=== PATIENT | female | born 1935 | race Caucasian/White ===

== ENCOUNTER 2017-05-28 17:25 | Emergency (ER) | payer OTHER ==
[~2017-05-28] VITALS: Ht 175.3 cm; Wt 53.5 kg
[~2017-05-28 17:25] MED LIST: ACET325 PO; ALBU3IS INH; ALBU90OI6 INH; ALEN70 PO; ALLERGY PILL; AMLO5 PO; ATOR20 PO; AZIT250 PO; Antivert25 MG PO; BUDE.25 NEB; CEPH500 PO; CHOL10002; CIPR500 PO; DULERA 200 MCG/13 GM INH; Doxycycline Hy100 MG PO; Esgic Tablet1 EACH PO; FAMO20 PO; FIBER PO; FLUO10 PO; GUAI600T33 PO; HYDACE10B PO; HYDACE5 PO; HYDACE5325 PO; IBUP800 PO; METPRE4DP PO; METR500 PO; MORP15ER PO; MULVITMIND PO; OXYACE5T PO; OXYC15ER PO; PRED20 PO; PROC10 PO; Prednisone20 MG PO; SERT25 PO; SULTRIDS PO; ZOLP5 PO; [UNRECOGNIZED DRUG - REMARK]
[2017-05-28 18:19] LABS: Source, Urine Voided
[2017-05-28 18:28] LABS: Bilirubin, Urine Neg (Neg); Blood, Urine 2+ (Neg); Glucose Qualitative, Urine Neg (Neg); Ketones, Urine 1+ (Neg); Leukocyte Esterase, Urine 3+ (Neg); Nitrite, Urine Neg (Neg); Protein, Urine 2+ (Neg); Urobilinogen, Urine 1+ (Normal)
[2017-05-28 18:37] LABS: Appearance, Urine Clear (Clear); Color, Urine Yellow (P-Yellow)
[2017-05-28 18:38] LABS: Bacteria Mod /hpf; Red Blood Cells, Urine 0-2 /hpf (0-2); Squamous Epithelial Cells Mod /hpf (Few)
[2017-05-28 18:39] LABS: Calcium Oxalate Crystals Many /hpf
[2017-05-28 19:14] LABS: BASOPHILS ABSOLUTE AUTO 0.05 K/mm3 (0.00-0.23); BASOPHILS PERCENT AUTO 0 % (0-2); EOSINOPHILS ABSOLUTE AUTO 0.06 K/mm3 (0.00-0.68); EOSINOPHILS PERCENT AUTO 1 % (0-6); Hematocrit 40.7 % (33.0-51.0); Hemoglobin 13.1 g/dL (11.5-16.0); IMMATURE GRAN ABSOLUTE AUTO 0.04 K/mm3 (0.00-0.10); IMMATURE GRAN PERCENT AUTO 0 % (0-1); LYMPHOCYTES ABSOLUTE AUTO 1.53 K/mm3 (0.84-5.20); LYMPHOCYTES PERCENT AUTO 13 % (21-46); MONOCYTES ABSOLUTE AUTO 1.32 K/mm3 (0.16-1.47); MONOCYTES PERCENT AUTO 11 % (4-13); Mean Corpuscular HGB 29.1 pg (26.0-34.0); Mean Corpuscular HGB Conc 32.2 g/dL (31.5-36.5); Mean Corpuscular Volume 90 fL (80-100); Mean Platelet Volume 9.7 fL (9.1-12.4); NEUTROPHILS ABSOLUTE AUTO 8.94 K/mm3 (1.96-9.15); NEUTROPHILS PERCENT AUTO 75 % (41-73); Platelet Count 319 K/mm3 (150-400); RDW Coefficient Variation 12.7 % (11.7-14.2); RDW Standard Deviation 42.5 fL (35.1-46.3); White Blood Cell Count 11.94 K/mm3 (4.00-11.30)
[2017-05-28 20:12] LABS: Alanine Aminotransfer (ALT/SGP 22 U/L (12-78); Albumin, Blood 3.8 g/dL (3.4-5.0); Alk Phos 81 U/L (50-136); Anion Gap 8 mmol/L (6-16); Aspartate Aminotrans (AST/SGOT 19 U/L (12-37); Bilirubin, Total 0.5 mg/dL (0.1-1.0); Blood Urea Nitrogen 17 mg/dL (8-24); Bun/Creatinine Ratio 24.4 (12.0-20.0); CO2, Blood 28 mmol/L (21-32); Calcium, Blood 9.2 mg/dL (8.5-10.1); Chloride, Blood 104 mmol/L (98-108); Globulin, Blood 3.7 g/dL (2.2-4.0); Glomerular Filtration Rate >60 (60-); Glucose, Blood 121 mg/dL (70-99); Potassium, Blood 3.7 mmol/L (3.5-5.5); Sodium, Blood 140 mmol/L (136-145); Total Protein, Blood 7.5 g/dL (6.4-8.2)
[2017-05-28] MEDS ORDERED: LIDO700A20 TOP (21:17)
[2017-05-28] MEDS ORDERED: Cyclobenzaprine5 MG PO (21:17)
[2017-05-28] MEDS ORDERED: Roxicodone5 MG PO (21:17)
[2018-02-09] MEDS ORDERED: OMEPRAZOLE MAGN20 MG PO (12:04)
[2018-02-09] MEDS ORDERED: Bactrim Ds Tab1 EACH PO (14:25)
== END 2017-05-28 21:51 | disposition home or self-care (01) ==
LOC: ER 17:25
PROVIDERS: Nurse Practitioner Family
DX: N39.0 Urinary tract infection, site not specified (principal); M62.830 Muscle spasm of back; M54.5 Low back pain; Z88.0 Allergy status to penicillin; Z88.1 Allergy status to other antibiotic agents; Z79.899 Other long term (current) drug therapy; Z79.891 Long term (current) use of opiate analgesic; J44.9 Chronic obstructive pulmonary disease, unspecified; Z77.22 Contact with and (suspected) exposure to environmental tobacco smoke (acute) (chronic); Z85.038 Personal history of other malignant neoplasm of large intestine
CPT/HCPCS: 36415; 74176; 80053; 81001; 85025; 87086; 96374; 96375; 99284; J0696; J1170; J1885; J2405

== ENCOUNTER 2018-12-26 12:20 | Emergency (ER) | payer OTHER ==
[~2018-12-26] VITALS: Ht 165.1 cm; Wt 45.4 kg
[~2018-12-26 12:20] MED LIST changes: +Bactrim Ds Tab1 EACH PO; +Cyclobenzaprine5 MG PO; +LIDO700A20 TOP; +OMEPRAZOLE MAGN20 MG PO; +Roxicodone5 MG PO
== END 2018-12-26 15:24 | disposition home or self-care (01) ==
LOC: ER 12:20
DX: M80.08XA Age-related osteoporosis with current pathological fracture, vertebra(e), initial encounter for fracture (principal); Z87.442 Personal history of urinary calculi; Z85.038 Personal history of other malignant neoplasm of large intestine; Z77.22 Contact with and (suspected) exposure to environmental tobacco smoke (acute) (chronic); Z88.0 Allergy status to penicillin; Z88.1 Allergy status to other antibiotic agents; Z79.899 Other long term (current) drug therapy; Z79.891 Long term (current) use of opiate analgesic
CPT/HCPCS: 72100; 96372; 99283-25; J1170

== ENCOUNTER → 2019-01-22 | Outpatient (CLI) | payer OTHER ==
[2019-01-22 15:31] LABS: U Amphetamine Screen Not Detected; U Barbituate Screen Not Detected; U Benzodiazapine Screen Not Detected; U Buprenorphine Screen Not Detected; U Cannabinoids Screen Not Detected; U Cocaine Screen Not Detected; U Methadone Screen Not Detected; U Methamphetamine Screen Not Detected; U Opiates Screen DETECTED; U Oxycodone Screen DETECTED; U Phencyclidine Screen Not Detected; U Propoxyphene Screen Not Detected
== END | disposition home or self-care (01) ==
LOC: LAB SHORT 13:33 → LAB 13:33
PROVIDERS: Internal Medicine
DX: Z51.81 Encounter for therapeutic drug level monitoring (principal); Z79.891 Long term (current) use of opiate analgesic
CPT/HCPCS: G0480

== ENCOUNTER 2020-08-03 12:07 | Day surgery (SDC) | payer OTHER ==
[~2020-08-03] VITALS: Ht 162.6 cm; Wt 94.6 kg
[~2020-08-03 12:07] MED LIST changes: +Ultram50 MG PO
[2020-08-03] MEDS ORDERED: CYMBALTA30 M2 PO (12:27)
[2020-08-03] MEDS ORDERED: LORA10ER PO (12:27)
== END 2020-08-03 14:05 | disposition home or self-care (01) ==
LOC: ORSCSDS 12:07
PROVIDERS: Student in an Organized Health Care Education/Training Program
PROC: 0DB68ZX Excision of Stomach, Via Natural or Artificial Opening Endoscopic, Diagnostic (ICD-10-PCS; principal; 2020-08-03 13:15)
PROC: 0DB98ZX Excision of Duodenum, Via Natural or Artificial Opening Endoscopic, Diagnostic (ICD-10-PCS; principal; 2020-08-03 13:15)
DX: R11.0 Nausea (principal); B96.81 Helicobacter pylori [H. pylori] as the cause of diseases classified elsewhere; K29.70 Gastritis, unspecified, without bleeding; K31.7 Polyp of stomach and duodenum; Z99.81 Dependence on supplemental oxygen; F32.9 Major depressive disorder, single episode, unspecified; K21.9 Gastro-esophageal reflux disease without esophagitis; J44.9 Chronic obstructive pulmonary disease, unspecified; Z79.899 Other long term (current) drug therapy
CPT/HCPCS: 88305; 88341; 88342; J2704; J7120

== ENCOUNTER 2020-08-18 15:21 | Emergency (ER) | payer OTHER ==
[~2020-08-18] VITALS: Ht 167.6 cm; Wt 42.2 kg
[~2020-08-18 15:21] MED LIST changes: +CYMBALTA30 M2 PO; +LORA10ER PO
[2020-08-18 15:58] LABS: BASOPHILS ABSOLUTE AUTO 0.05 K/mm3 (0.00-0.23); BASOPHILS PERCENT AUTO 0 % (0-2); EOSINOPHILS ABSOLUTE AUTO 0.01 K/mm3 (0.00-0.68); EOSINOPHILS PERCENT AUTO 0 % (0-6); Hematocrit 42.3 % (33.0-51.0); Hemoglobin 13.8 g/dL (11.5-16.0); IMMATURE GRAN ABSOLUTE AUTO 0.05 K/mm3 (0.00-0.10); IMMATURE GRAN PERCENT AUTO 0 % (0-1); LYMPHOCYTES ABSOLUTE AUTO 2.25 K/mm3 (0.84-5.20); LYMPHOCYTES PERCENT AUTO 19 % (21-46); MONOCYTES ABSOLUTE AUTO 1.09 K/mm3 (0.16-1.47); MONOCYTES PERCENT AUTO 9 % (4-13); Mean Corpuscular HGB 29.8 pg (26.0-34.0); Mean Corpuscular HGB Conc 32.6 g/dL (31.5-36.5); Mean Corpuscular Volume 91 fL (80-100); Mean Platelet Volume 10.1 fL (9.1-12.4); NEUTROPHILS ABSOLUTE AUTO 8.53 K/mm3 (1.96-9.15); NEUTROPHILS PERCENT AUTO 71 % (41-73); Platelet Count 337 K/mm3 (150-400); RDW Coefficient Variation 11.7 % (11.7-14.2); RDW Standard Deviation 39.6 fL (35.1-46.3); Red Blood Cell Count 4.63 M/mm3 (3.80-5.20); White Blood Cell Count 11.98 K/mm3 (4.00-11.30)
[2020-08-18 16:19] LABS: Alanine Aminotransfer (ALT/SGP 17 U/L (12-78); Albumin/Globulin Ratio 1.2 (0.8-1.8); Alk Phos 101 U/L (50-136); Anion Gap 5 mmol/L (6-16); Aspartate Aminotrans (AST/SGOT 18 U/L (12-37); Bilirubin, Total 0.5 mg/dL (0.1-1.0); Blood Urea Nitrogen 20 mg/dL (8-24); Bun/Creatinine Ratio 22.5 (12.0-20.0); CO2, Blood 25 mmol/L (21-32); Calcium, Blood 9.2 mg/dL (8.5-10.1); Chloride, Blood 104 mmol/L (98-108); Creatinine, Blood 0.89 mg/dL (0.40-1.00); Globulin, Blood 3.4 g/dL (2.2-4.0); Glomerular Filtration Rate >60 (60-); Glucose, Blood 151 mg/dL (70-99); Potassium, Blood 3.7 mmol/L (3.5-5.5); Sodium, Blood 134 mmol/L (136-145); Total Protein, Blood 7.4 g/dL (6.4-8.2)
[2020-08-18] MEDS ORDERED: DOXYCYCLINE HY100 M1 PO (18:42)
[2020-08-18] MEDS ORDERED: METR500 PO (18:42)
[2020-08-18] MEDS ORDERED: BISM300CH PO (18:43)
== END 2020-08-18 21:56 | disposition home or self-care (01) ==
LOC: ER 15:21
PROVIDERS: Physician Assistant
DX: K92.1 Melena (principal); E78.00 Pure hypercholesterolemia, unspecified; J44.9 Chronic obstructive pulmonary disease, unspecified; Z88.0 Allergy status to penicillin; Z88.1 Allergy status to other antibiotic agents; Z79.899 Other long term (current) drug therapy; Z87.442 Personal history of urinary calculi
CPT/HCPCS: 36415; 74177; 80053; 85025; 86850; 86900; 86901; 93005; 93010; 96374-59; 99284-25; J2405; Q9967

== ENCOUNTER 2021-04-20 18:55 | Emergency (ER) | payer OTHER ==
[~2021-04-20] VITALS: Ht 167.6 cm; Wt 38.6 kg
[~2021-04-20 18:55] MED LIST changes: +ALMACONE SUSPE355 ML PO; +BISM300CH PO; +DOXYCYCLINE HY100 M1 PO; +ONDA4ODT MM
[2021-04-20 19:33] LABS: BASOPHILS ABSOLUTE AUTO 0.01 K/mm3 (0.00-0.23); BASOPHILS PERCENT AUTO 0 % (0-2); EOSINOPHILS PERCENT AUTO 0 % (0-6); Hematocrit 42.3 % (33.0-51.0); Hemoglobin 13.9 g/dL (11.5-16.0); IMMATURE GRAN ABSOLUTE AUTO 0.02 K/mm3 (0.00-0.10); IMMATURE GRAN PERCENT AUTO 0 % (0-1); LYMPHOCYTES ABSOLUTE AUTO 0.64 K/mm3 (0.84-5.20); LYMPHOCYTES PERCENT AUTO 8 % (21-46); MONOCYTES ABSOLUTE AUTO 0.28 K/mm3 (0.16-1.47); MONOCYTES PERCENT AUTO 4 % (4-13); Mean Corpuscular HGB 30.5 pg (26.0-34.0); Mean Corpuscular HGB Conc 32.9 g/dL (31.5-36.5); Mean Corpuscular Volume 93 fL (80-100); NEUTROPHILS ABSOLUTE AUTO 6.86 K/mm3 (1.96-9.15); NEUTROPHILS PERCENT AUTO 88 % (41-73); Platelet Count 258 K/mm3 (150-400); RDW Coefficient Variation 11.8 % (11.7-14.2); RDW Standard Deviation 40.6 fL (35.1-46.3); Red Blood Cell Count 4.55 M/mm3 (3.80-5.20); White Blood Cell Count 7.81 K/mm3 (4.00-11.30)
[2021-04-20 19:58] LABS: Alanine Aminotransfer (ALT/SGP 31 U/L (12-78); Albumin, Blood 3.5 g/dL (3.4-5.0); Albumin/Globulin Ratio 0.9 (0.8-1.8); Alk Phos 91 U/L (50-136); Anion Gap 6 mmol/L (6-16); Aspartate Aminotrans (AST/SGOT 30 U/L (12-37); Bilirubin, Total 0.4 mg/dL (0.1-1.0); Blood Urea Nitrogen 16 mg/dL (8-24); Bun/Creatinine Ratio 25.8 (12.0-20.0); CO2, Blood 28 mmol/L (21-32); Calcium, Blood 9.1 mg/dL (8.5-10.1); Chloride, Blood 105 mmol/L (98-108); Creatinine, Blood 0.62 mg/dL (0.40-1.00); Globulin, Blood 3.9 g/dL (2.2-4.0); Glomerular Filtration Rate >60 (60-); Glucose, Blood 154 mg/dL (70-99); Potassium, Blood 3.5 mmol/L (3.5-5.5); Sodium, Blood 139 mmol/L (136-145); Total Protein, Blood 7.4 g/dL (6.4-8.2)
[2021-04-20] MEDS ORDERED: ONDA4ODT MM (23:53)
== END 2021-04-21 00:14 | disposition home or self-care (01) ==
LOC: ER 18:55
PROVIDERS: Physician Assistant
DX: R10.13 Epigastric pain (principal); R11.2 Nausea with vomiting, unspecified; J44.9 Chronic obstructive pulmonary disease, unspecified; E78.00 Pure hypercholesterolemia, unspecified; K21.9 Gastro-esophageal reflux disease without esophagitis; Z88.0 Allergy status to penicillin; Z88.1 Allergy status to other antibiotic agents; Z79.899 Other long term (current) drug therapy
CPT/HCPCS: 36415; 76705; 80053; 83690; 85025; A9270; J2405; J7120

== ENCOUNTER 2021-09-14 14:32 | Emergency (ER) | payer OTHER ==
[~2021-09-14] VITALS: Ht 165.1 cm; Wt 40.4 kg
[2021-09-14 15:15] LABS: BASOPHILS ABSOLUTE AUTO 0.04 K/mm3 (0.00-0.23); BASOPHILS PERCENT AUTO 0 % (0-2); EOSINOPHILS ABSOLUTE AUTO 0.01 K/mm3 (0.00-0.68); EOSINOPHILS PERCENT AUTO 0 % (0-6); Hematocrit 39.8 % (33.0-51.0); Hemoglobin 12.4 g/dL (11.5-16.0); IMMATURE GRAN ABSOLUTE AUTO 0.03 K/mm3 (0.00-0.10); IMMATURE GRAN PERCENT AUTO 0 % (0-1); LYMPHOCYTES ABSOLUTE AUTO 1.56 K/mm3 (0.84-5.20); LYMPHOCYTES PERCENT AUTO 16 % (21-46); MONOCYTES ABSOLUTE AUTO 0.85 K/mm3 (0.16-1.47); MONOCYTES PERCENT AUTO 9 % (4-13); Mean Corpuscular HGB 29.8 pg (26.0-34.0); Mean Corpuscular HGB Conc 31.2 g/dL (31.5-36.5); Mean Corpuscular Volume 96 fL (80-100); Mean Platelet Volume 10.7 fL (9.1-12.4); NEUTROPHILS ABSOLUTE AUTO 7.16 K/mm3 (1.96-9.15); NEUTROPHILS PERCENT AUTO 74 % (41-73); Platelet Count 217 K/mm3 (150-400); RDW Coefficient Variation 11.8 % (11.7-14.2); RDW Standard Deviation 41.6 fL (35.1-46.3); Red Blood Cell Count 4.16 M/mm3 (3.80-5.20); White Blood Cell Count 9.65 K/mm3 (4.00-11.30)
[2021-09-14 15:35] LABS: Albumin, Blood 3.8 g/dL (3.4-5.0); Bilirubin, Total 0.4 mg/dL (0.1-1.0); Bun/Creatinine Ratio 20.9 (12.0-20.0); Calcium, Blood 9.2 mg/dL (8.5-10.1); Creatinine, Blood 0.76 mg/dL (0.40-1.00); Globulin, Blood 3.9 g/dL (2.2-4.0); Potassium, Blood 4.5 mmol/L (3.5-5.5); Total Protein, Blood 7.7 g/dL (6.4-8.2)
[2021-09-14 18:04] LABS: Source, Urine Fem Cath
[2021-09-14 18:07] LABS: Appearance, Urine Clear (Clear); Bilirubin, Urine Neg (Neg); Blood, Urine Neg (Neg); Color, Urine Yellow (P-Yellow); Glucose Qualitative, Urine Neg (Neg); Ketones, Urine Neg (Neg); Leukocyte Esterase, Urine Neg (Neg); Nitrite, Urine Neg (Neg); Protein, Urine Neg (Neg); Urobilinogen, Urine NORM (Normal)
== END 2021-09-14 20:39 | disposition home or self-care (01) ==
LOC: ER 14:32
PROVIDERS: Physician Assistant
DX: R10.32 Left lower quadrant pain (principal); J44.9 Chronic obstructive pulmonary disease, unspecified; K21.9 Gastro-esophageal reflux disease without esophagitis; E78.00 Pure hypercholesterolemia, unspecified; Z79.899 Other long term (current) drug therapy
CPT/HCPCS: 36415; 74176; 76770; 80053; 81003; 83690; 85025; A9270

== ENCOUNTER 2022-02-17 12:15 | Inpatient (IN) | payer OTHER ==
[~2022-02-17] VITALS: Ht 165.1 cm; Wt 37.9 kg
[2022-02-17 12:46] LABS: BASOPHILS ABSOLUTE AUTO 0.05 K/mm3 (0.00-0.23); BASOPHILS PERCENT AUTO 0 % (0-2); EOSINOPHILS PERCENT AUTO 0 % (0-6); Hematocrit 40.3 % (33.0-51.0); Hemoglobin 12.9 g/dL (11.5-16.0); IMMATURE GRAN ABSOLUTE AUTO 0.17 K/mm3 (0.00-0.10); IMMATURE GRAN PERCENT AUTO 1 % (0-1); LYMPHOCYTES ABSOLUTE AUTO 1.01 K/mm3 (0.84-5.20); LYMPHOCYTES PERCENT AUTO 6 % (21-46); MONOCYTES ABSOLUTE AUTO 1.23 K/mm3 (0.16-1.47); MONOCYTES PERCENT AUTO 8 % (4-13); Mean Corpuscular HGB 30.2 pg (26.0-34.0); Mean Corpuscular Volume 94 fL (80-100); Mean Platelet Volume 9.7 fL (9.1-12.4); NEUTROPHILS ABSOLUTE AUTO 13.74 K/mm3 (1.96-9.15); NEUTROPHILS PERCENT AUTO 85 % (41-73); Platelet Count 323 K/mm3 (150-400); RDW Standard Deviation 41.7 fL (35.1-46.3); Red Blood Cell Count 4.27 M/mm3 (3.80-5.20)
[2022-02-17 13:05] LABS: Albumin/Globulin Ratio 0.6 (0.8-1.8); Bilirubin, Total 0.6 mg/dL (0.1-1.0); Bun/Creatinine Ratio 45.2 (12.0-20.0); Calcium, Blood 9.8 mg/dL (8.5-10.1); Creatinine, Blood 0.75 mg/dL (0.40-1.00); Globulin, Blood 4.7 g/dL (2.2-4.0); Potassium, Blood 3.7 mmol/L (3.5-5.5); Total Protein, Blood 7.7 g/dL (6.4-8.2)
[2022-02-17] MEDS ORDERED: ROXICODONE15 MG PO (15:25)
[2022-02-17] MEDS ORDERED: Ventolin/Prove6.7 GM INH (15:25)
--- NOTE | 2022-02-17 17:28 | NUR ---
SHIFT SUMMARY; PATIENT ARRIVED TO MED FLOOR FROM ER LATE THIS AFTERNOON. SHE IS AO X 3 ON ARRIVAL. IS A ONE PERSON ASSIST TO THE BED FROM ER [facility]. SHE IS ON 2 LITERS O2 VIA NASAL CANNULA. HER LUNGS ARE COARSE AND DIM THROUGHOUT. SHE HAD A NONPRODUCTIVE COUGH PER REPORT HOWEVER IS NOW COUGHING THICK YELLOW PHLEGM PER HISTORY SHE STARTED FEELING SICK ONE WEEK AGO AND WENT TO THE ER HERE 3 DAYS AGO AND RECEIVED A ZPAK FOR PNEUMONIA. RETURNED TO THE ER TODAY SHE WAS FEELING MUCH WORSE. PATIENT SEE'S [facility] FOR HER PCP. ADMITS HER. TOMÁS RECEIVED A 500ML BOLUS PER ORDER OF NS. SHE IS PLACED IN A SMALL GOWN PATIENT IS LESS THAN 90 POUNDS. MEDICATIONS ARE VERIFIED WITH HER SON AND DAUGHTER IN [place] WHO LIVE WITH HER AND ARE AT BEDSIDE. PER FAMILY PATIENT RECEIVES HER MEDICATIONS FROM [facility] AND RN WILL NEED TO FAX A REQUEST FOR CURRENT MEDICATIONS THERE IN THE AM SINCE IT IS TOO LATE TO CALL TODAY IT IS FRIDAY. PATIENTS VITAL SIGNS SHOW SHE HAS ELEVATED BLOOD PRESSURES AT 157/91 HR TACHY AT 109. PATIENT IS NOT CURRENTLY FEBRILE BUT SHE EXPRESSES MUCH WEAKNESS AND IS NOTED TO BREATH WITH PURSED LIP BREATHING. IS CALLED THIS AFTERNOON AND REQUEST FROM PATIENT FOR HER OXYCODONE MEDICATION. SHE TAKES 15MG Q 6 HOURS PRN PAIN. OK FROM TO PLACE VERBAL ORDER. WILL CONTINUE TO MONITOR THIS PATIENT CLOSELY UNTIL REPORT AND HAND OFF TO DAY SHIFT RN.
[2022-02-17 17:37] LABS: Source, Urine Clean Catch
[2022-02-17 17:52] LABS: Appearance, Urine Clear (Clear); Bilirubin, Urine Neg (Neg); Blood, Urine 1+ (Neg); Color, Urine Yellow (P-Yellow); Glucose Qualitative, Urine Neg (Neg); Ketones, Urine 2+ (Neg); Leukocyte Esterase, Urine Neg (Neg); Nitrite, Urine Neg (Neg); Protein, Urine 3+ (Neg); Urobilinogen, Urine NORM (Normal)
[2022-02-17 18:32] LABS: Bacteria Mod /hpf; Hyaline Casts 0-2 /lpf (0-2); Squamous Epithelial Cells Few /hpf (Few); Uric Acid Crystals Few /hpf
[2022-02-17 18:33] LABS: Amorphous Light (0-Heavy)
[2022-02-18 06:01] LABS: BASOPHILS ABSOLUTE AUTO 0.07 K/mm3 (0.00-0.23); BASOPHILS PERCENT AUTO 1 % (0-2); EOSINOPHILS ABSOLUTE AUTO 0.02 K/mm3 (0.00-0.68); EOSINOPHILS PERCENT AUTO 0 % (0-6); Hematocrit 38.2 % (33.0-51.0); Hemoglobin 11.5 g/dL (11.5-16.0); IMMATURE GRAN ABSOLUTE AUTO 0.16 K/mm3 (0.00-0.10); IMMATURE GRAN PERCENT AUTO 1 % (0-1); LYMPHOCYTES ABSOLUTE AUTO 1.36 K/mm3 (0.84-5.20); LYMPHOCYTES PERCENT AUTO 10 % (21-46); MONOCYTES PERCENT AUTO 11 % (4-13); Mean Corpuscular HGB 28.8 pg (26.0-34.0); Mean Corpuscular HGB Conc 30.1 g/dL (31.5-36.5); Mean Corpuscular Volume 96 fL (80-100); Mean Platelet Volume 9.9 fL (9.1-12.4); NEUTROPHILS PERCENT AUTO 76 % (41-73); Platelet Count 339 K/mm3 (150-400); RDW Coefficient Variation 12.1 % (11.7-14.2); RDW Standard Deviation 43.2 fL (35.1-46.3); Red Blood Cell Count 3.99 M/mm3 (3.80-5.20); White Blood Cell Count 13.11 K/mm3 (4.00-11.30)
[2022-02-18 06:22] LABS: Albumin, Blood 2.6 g/dL (3.4-5.0); Albumin/Globulin Ratio 0.6 (0.8-1.8); Bilirubin, Total 0.5 mg/dL (0.1-1.0); Bun/Creatinine Ratio 44.5 (12.0-20.0); Calcium, Blood 9.5 mg/dL (8.5-10.1); Creatinine, Blood 0.74 mg/dL (0.40-1.00); Globulin, Blood 4.1 g/dL (2.2-4.0); Magnesium, Blood 2.1 mg/dL (1.6-2.4); Potassium, Blood 3.9 mmol/L (3.5-5.5); Total Protein, Blood 6.7 g/dL (6.4-8.2)
--- NOTE | 2022-02-18 06:48 | NUR ---
SHIFT SUMMARY: PATIENT IS A&OX4, REPORTS GENERALIZED PAIN 12/05. MEDICATED WITH OXYCODONE 15MG X1 WUTH GOOD EFFECT. WHEN PATIENT WAS PAINFUL BP AND HR WERE ELEVATED. THESE RESOLVED WITH GOOD PAIN CONTROL. LOW GRADE TEMP. OBSERVED, ROOM IS WARM AND SOME BLANKETS ARE REMOVED. UP TO THE BSC WITH AX1.. TOLERATING CLEAR LIQUID DIET WELL.
--- NOTE | 2022-02-18 18:47 | NUR ---
PT HAD IV REPLACED TODAY; C/O PAIN ONCE AND WAS TREATED. DID HAVE COUGHING SPELL TODAY. NEW ORDERS GIVEN FOR ROBITUSSIN W/ CODIENE. DID GET ON REGULAR DIET. FAMILY IN TO VISIT TODAY. LUNGS CONTINUE TO BE VERY DIM IN BASES AND COARSE T/O ON 2 1/2 L O2. ABLE TO USE BSC TODAY. 1 ASST. BED IN LOW POSITION, CALL LITE IN REACH, CALLS APROP
--- NOTE | 2022-02-19 04:06 | NUR ---
SHIFT SUMMARY: PATIENT CONTINOUS TO HAVE HARSH NON-PRODUCTIVE COUGH. ROBITUSSIN WAS GIVEN X1 WITH GOOD EFFECT. PATIENT REQUEST ONLY 10MG OF OXYCODONE FOR CHRONIC GENERALIZED PAIN. PATIENT REPORTS GOOD EFFECT. UP TO THE BSC WITH SBA. BED ALRM IS ON FOR SAFETY.
[2022-02-19 05:55] LABS: BASOPHILS ABSOLUTE AUTO 0.05 K/mm3 (0.00-0.23); BASOPHILS PERCENT AUTO 1 % (0-2); EOSINOPHILS ABSOLUTE AUTO 0.06 K/mm3 (0.00-0.68); EOSINOPHILS PERCENT AUTO 1 % (0-6); Hematocrit 36.7 % (33.0-51.0); IMMATURE GRAN ABSOLUTE AUTO 0.25 K/mm3 (0.00-0.10); IMMATURE GRAN PERCENT AUTO 2 % (0-1); LYMPHOCYTES ABSOLUTE AUTO 1.48 K/mm3 (0.84-5.20); LYMPHOCYTES PERCENT AUTO 13 % (21-46); MONOCYTES ABSOLUTE AUTO 1.45 K/mm3 (0.16-1.47); MONOCYTES PERCENT AUTO 13 % (4-13); Mean Corpuscular HGB 29.2 pg (26.0-34.0); Mean Corpuscular Volume 97 fL (80-100); Mean Platelet Volume 9.7 fL (9.1-12.4); NEUTROPHILS ABSOLUTE AUTO 7.73 K/mm3 (1.96-9.15); NEUTROPHILS PERCENT AUTO 70 % (41-73); Platelet Count 324 K/mm3 (150-400); RDW Coefficient Variation 11.9 % (11.7-14.2); RDW Standard Deviation 42.7 fL (35.1-46.3); Red Blood Cell Count 3.77 M/mm3 (3.80-5.20); White Blood Cell Count 11.02 K/mm3 (4.00-11.30)
[2022-02-19 06:04] LABS: Bun/Creatinine Ratio 39.6 (12.0-20.0); Calcium, Blood 9.1 mg/dL (8.5-10.1); Creatinine, Blood 0.76 mg/dL (0.40-1.00); Potassium, Blood 3.9 mmol/L (3.5-5.5)
--- NOTE | 2022-02-19 13:12 | NUR ---
Dose change on oxy Range added to oxy per T.O. from Dr. Caceres. Patient to have 10-15 mg oxy q6h prn for pain. Orders updated.
--- NOTE | 2022-02-19 17:09 | NUR ---
Shift Summary A/Ox4, pleasant/cooperative. Calls appropriately. Worked with PT/OT, recommending HH. Occ nonproductive cought. Oxy PRN for "everywhere" pain with good effect. MIGUEL haywood FWW and gaitbelt to bathroom. Verbalized that she is not ready to go home today.
[2022-02-20 05:59] LABS: BASOPHILS ABSOLUTE AUTO 0.05 K/mm3 (0.00-0.23); BASOPHILS PERCENT AUTO 0 % (0-2); EOSINOPHILS ABSOLUTE AUTO 0.06 K/mm3 (0.00-0.68); EOSINOPHILS PERCENT AUTO 1 % (0-6); Hematocrit 35.5 % (33.0-51.0); Hemoglobin 10.8 g/dL (11.5-16.0); IMMATURE GRAN ABSOLUTE AUTO 0.34 K/mm3 (0.00-0.10); IMMATURE GRAN PERCENT AUTO 3 % (0-1); LYMPHOCYTES ABSOLUTE AUTO 1.91 K/mm3 (0.84-5.20); LYMPHOCYTES PERCENT AUTO 17 % (21-46); MONOCYTES ABSOLUTE AUTO 1.53 K/mm3 (0.16-1.47); MONOCYTES PERCENT AUTO 13 % (4-13); Mean Corpuscular HGB 29.4 pg (26.0-34.0); Mean Corpuscular HGB Conc 30.4 g/dL (31.5-36.5); Mean Corpuscular Volume 97 fL (80-100); Mean Platelet Volume 9.9 fL (9.1-12.4); NEUTROPHILS ABSOLUTE AUTO 7.56 K/mm3 (1.96-9.15); NEUTROPHILS PERCENT AUTO 66 % (41-73); Platelet Count 328 K/mm3 (150-400); RDW Coefficient Variation 11.9 % (11.7-14.2); RDW Standard Deviation 42.4 fL (35.1-46.3); Red Blood Cell Count 3.67 M/mm3 (3.80-5.20); White Blood Cell Count 11.45 K/mm3 (4.00-11.30)
[2022-02-20 06:29] LABS: Calcium, Blood 8.9 mg/dL (8.5-10.1); Creatinine, Blood 0.63 mg/dL (0.40-1.00); Potassium, Blood 3.7 mmol/L (3.5-5.5)
--- NOTE | 2022-02-20 06:33 | NUR ---
SHIFT SUMMARY: PT A/O X 4, STANDBY ASSIST WITH WALKER AND GB. PT IV SITE WAS TENDER AND PAINFUL AND PT REQUESTED IT BE REMOVED. PT REFUSED STARTING ANOTHER IV. PT ON ROCEPHIN THIS AM, WILL REPORT TO ONCOMING RN TO NOTIFY MD TO SEE IF ROCEPHIN CAN BE CHANGED TO ORAL ANTIBIOTIC. PT PAIN MANAGED WITH NO COMPLAINTS THROUGH THE NIGHT. SHE DOES HAVE SCANT PRODUCTIVE COUGH WITH YELLOW SPUTUM. COUGH MANAGED WITH COUGH SYRUP. PT DID GET UP TO RESTROOM THIS AM AND COMPLAINED OF 9/10 GENRALIZED PAIN AND SHE WAS MEDCICATED WITH OXYCODONE 15 MG PER MAR PARAMETERS.
[2022-02-20] MEDS ORDERED: AZIT250 PO (11:23)
[2022-02-20] MEDS ORDERED: CEFD300 PO (11:24)
--- NOTE | 2022-02-20 12:42 | NUR ---
DISCHARGE SUMMARY: PATIENT CONTINUES TO HAVE SOME SHORTNESS OF BREATH WITH ACTIVITY. PATIENT RECOVERS QUICKLY. PATIENT REPORTS THIS IS MUCH IMPROVED OVER WHEN SHE WAS ADMITTED. PATIENT WEARING HER BASELINE O2 OF 2L. PATIENT CONTINUES TO HAVE A PRODUCTIVE COUGH WITH SOME YELLOW SPUTUM. PATIENT UP TO CHAIR FOR HER MEALS. PATIENT WORKED WITH PT AND OT. PATIENT NOTIFIED THAT IF SHE CHANGES HER MIND SHE CAN HAVE HOME HEALTH PT ORDERED THROUGH HER PCP. DISCHARGE RX FAXED TO [facility] PER PATIENT REQUEST. PATIENT'S SON AT THE HOSPITAL TO WOOL SHEARER THE PATIENT. DISCHARGE INSTRUCTIONS AND EDUCATION PROVIDED TO THE PATIENT AND FAMILY. ALL QUESTIONS AND CONCERNS ADDRESSED. PATIENT DISCHARGED IN WHEELCHAIR WITH PROSTHODONTIST. PATIENT STABLE AT TIME OF DISCHARGE.
== END 2022-02-20 12:37 | disposition home or self-care (01) | DRG 193 ==
LOC: ER 12:15 → MEDS 14:19
PROVIDERS: Emergency Medicine; Family Medicine; ADMIT Internal Medicine
DX: J18.9 Pneumonia, unspecified organism (principal); J96.21 Acute and chronic respiratory failure with hypoxia; R64 Cachexia; Z68.1 Body mass index [BMI] 19.9 or less, adult; J44.9 Chronic obstructive pulmonary disease, unspecified; E78.00 Pure hypercholesterolemia, unspecified; K21.9 Gastro-esophageal reflux disease without esophagitis; D64.9 Anemia, unspecified; M19.90 Unspecified osteoarthritis, unspecified site; G43.909 Migraine, unspecified, not intractable, without status migrainosus; M81.0 Age-related osteoporosis without current pathological fracture; Z77.22 Contact with and (suspected) exposure to environmental tobacco smoke (acute) (chronic); I10 Essential (primary) hypertension; G47.00 Insomnia, unspecified; G89.29 Other chronic pain; Z88.0 Allergy status to penicillin; Z79.899 Other long term (current) drug therapy; Z88.1 Allergy status to other antibiotic agents; Z87.442 Personal history of urinary calculi; Z90.49 Acquired absence of other specified parts of digestive tract; Z98.42 Cataract extraction status, left eye; Z98.41 Cataract extraction status, right eye; Z90.710 Acquired absence of both cervix and uterus; Z90.89 Acquired absence of other organs; Z85.038 Personal history of other malignant neoplasm of large intestine
CPT/HCPCS: 36415; 71045; 80048; 80053; 81001; 83605; 83735; 84145; 85025; 87040; 87086; 94640; 94664; 94760; 96361; 96374; 97110; 97116; 97162; 97165; 97530; 97535; 99285-25; A9270; J0456; J0696; J1650; J7030; J7050

== ENCOUNTER → 2023-02-11 | Outpatient (CLI) | payer OTHER ==
[~2023-02-11] MED LIST changes: +CEFD300 PO; +ROXICODONE15 MG PO; +Ventolin/Prove6.7 GM INH
[2023-02-11 15:38] LABS: BASOPHILS ABSOLUTE AUTO 0.05 K/mm3 (0.00-0.23); BASOPHILS PERCENT AUTO 1 % (0-2); EOSINOPHILS ABSOLUTE AUTO 0.01 K/mm3 (0.00-0.68); EOSINOPHILS PERCENT AUTO 0 % (0-6); IMMATURE GRAN ABSOLUTE AUTO 0.03 K/mm3 (0.00-0.10); IMMATURE GRAN PERCENT AUTO 0 % (0-1); LYMPHOCYTES ABSOLUTE AUTO 1.82 K/mm3 (0.84-5.20); LYMPHOCYTES PERCENT AUTO 18 % (21-46); MONOCYTES ABSOLUTE AUTO 1.02 K/mm3 (0.16-1.47); MONOCYTES PERCENT AUTO 10 % (4-13); Mean Corpuscular HGB 29.9 pg (26.0-34.0); Mean Corpuscular HGB Conc 31.8 g/dL (31.5-36.5); Mean Corpuscular Volume 94 fL (80-100); Mean Platelet Volume 9.5 fL (9.1-12.4); NEUTROPHILS ABSOLUTE AUTO 7.01 K/mm3 (1.96-9.15); NEUTROPHILS PERCENT AUTO 71 % (41-73); Platelet Count 347 K/mm3 (150-400); RDW Coefficient Variation 12.4 % (11.7-14.2); RDW Standard Deviation 42.5 fL (35.1-46.3); Red Blood Cell Count 4.69 M/mm3 (3.80-5.20); White Blood Cell Count 9.94 K/mm3 (4.00-11.30)
[2023-02-11 15:55] LABS: Albumin, Blood 4.1 g/dL (3.4-5.0); Bilirubin, Total 0.4 mg/dL (0.1-1.0); Bun/Creatinine Ratio 21.2 (12.0-20.0); Calcium, Blood 9.6 mg/dL (8.5-10.1); Creatinine, Blood 1.13 mg/dL (0.40-1.00); Globulin, Blood 4.3 g/dL (2.2-4.0); Potassium, Blood 4.1 mmol/L (3.5-5.5); Total Protein, Blood 8.4 g/dL (6.4-8.2)
== END | disposition home or self-care (01) ==
LOC: LAB SHORT 15:31 → LAB 15:31
PROVIDERS: Chiropractor
DX: R06.00 Dyspnea, unspecified (principal)
CPT/HCPCS: 80053; 83880; 84484; 85025; 85379